=== PATIENT | female | born 1930 | race Caucasian/White ===

== ENCOUNTER 2016-09-11 14:54 | Inpatient (IN) | payer MEDICARE, OTHER ==
[~2016-09-11] VITALS: Ht 152.4 cm; Wt 78.0 kg
[2016-09-11] MEDS ORDERED: FOSAMAX70 MG PO (20:32)
[2016-09-11] MEDS ORDERED: ZYLOPRIM 100 M100 MG PO (20:33)
[2016-09-11] MEDS ORDERED: LASIX 40 MG TAB40 MG PO (20:33)
[2016-09-11] MEDS ORDERED: ATROVENT INH S2.5 ML INH (20:36)
[2016-09-11] MEDS ORDERED: COZAAR 50MG TAB50 MG GT (20:37)
[2016-09-11] MEDS ORDERED: KLOR-CON M1010 MEQ PO (20:37)
[2016-09-11] MEDS ORDERED: METOPROLOL SUCC25 MG PO (20:38)
[2016-09-11] MEDS ORDERED: MINITRAN1 EAC1 TD (20:40)
[2016-09-11] MEDS ORDERED: ZOCOR20 MG PO (20:41)
[2016-09-11] MEDS ORDERED: SPIRIVA RESPIMAT4 GM INH (20:41)
[2016-09-11] MEDS ORDERED: PROAIR HFA8.5 GM INH (20:43)
[2016-09-12 05:34] LABS: HEMOGLOBIN 9.1 gm/dl (12.3-15.3); RED BLOOD COUNT 2.84 M/UL (4.00-5.10); WHITE BLOOD COUNT 4.9 K/UL (4.5-11.0)
[2016-09-13 05:26] LABS: HEMOGLOBIN 9.8 gm/dl (12.3-15.3); RED BLOOD COUNT 3.05 M/UL (4.00-5.10); WHITE BLOOD COUNT 5.6 K/UL (4.5-11.0)
[2016-09-14 05:20] LABS: HEMOGLOBIN 9.2 gm/dl (12.3-15.3); RED BLOOD COUNT 2.85 M/UL (4.00-5.10); WHITE BLOOD COUNT 5.3 K/UL (4.5-11.0)
[2016-09-16 05:39] LABS: HEMOGLOBIN 8.8 gm/dl (12.3-15.3); RED BLOOD COUNT 2.75 M/UL (4.00-5.10)
[2016-09-16] MEDS ORDERED: NORVASC 5 MG TAB5 MG PO (16:31)
[2016-09-16] MEDS ORDERED: ELIQUIS2.5 MG PO (16:32)
[2016-09-16] MEDS ORDERED: ASPIR 8181 MG PO (16:34)
[2016-09-16] MEDS ORDERED: SPIRIVA RESPIMAT4 GM INH (16:36)
[2016-09-16] MEDS ORDERED: DULERA 100 MCG8.8 GM INH (16:44)
[2016-09-16] MEDS ORDERED: TYLENOL 325MG325 MG PO (16:45)
[2016-09-16] MEDS ORDERED: FERROUS SULFAT325 MG PO (16:52)
[2016-09-16] MEDS ORDERED: THERAGRAN M TAB1 EA PO (16:53)
[2016-09-16] MEDS ORDERED: OXYGEN (16:55)
[2016-09-16] MEDS ORDERED: IPRAT-ALBUT 0.5-3 ML INH (17:13)
[2016-09-16] MEDS ORDERED: ECOTRIN81 MG PO (17:15)
[2016-09-16] MEDS ORDERED: TYLENOL W/CODEIN1 E1 PO (17:17)
[2016-09-16] MEDS ORDERED: SPIRIVA HANDIH18 MCG INH (17:17)
== END 2016-09-16 18:30 | disposition home health service (06) | DRG 242 ==
LOC: PROG CARE 14:54
PROVIDERS: ADMIT Internal Medicine Infectious Disease
PROC: 0JH606Z Insertion of Pacemaker, Dual Chamber into Chest Subcutaneous Tissue and Fascia, Open Approach (ICD-10-PCS; principal; 2016-09-15)
PROC: 02HK3JZ Insertion of Pacemaker Lead into Right Ventricle, Percutaneous Approach (ICD-10-PCS; 2016-09-15)
DX: I44.2 Atrioventricular block, complete (principal); I50.33 Acute on chronic diastolic (congestive) heart failure; I26.99 Other pulmonary embolism without acute cor pulmonale; J96.21 Acute and chronic respiratory failure with hypoxia; I13.0 Hypertensive heart and chronic kidney disease with heart failure and stage 1 through stage 4 chronic kidney disease, or unspecified chronic kidney disease; N17.9 Acute kidney failure, unspecified; R00.1 Bradycardia, unspecified; N18.9 Chronic kidney disease, unspecified; J44.9 Chronic obstructive pulmonary disease, unspecified; D50.9 Iron deficiency anemia, unspecified; E53.8 Deficiency of other specified B group vitamins; E87.5 Hyperkalemia; I25.10 Atherosclerotic heart disease of native coronary artery without angina pectoris; Z95.5 Presence of coronary angioplasty implant and graft; Z87.891 Personal history of nicotine dependence; Z88.7 Allergy status to serum and vaccine; Z79.899 Other long term (current) drug therapy; Z79.82 Long term (current) use of aspirin; Z98.890 Other specified postprocedural states; Z90.49 Acquired absence of other specified parts of digestive tract; Z82.49 Family history of ischemic heart disease and other diseases of the circulatory system; R79.1 Abnormal coagulation profile
CPT/HCPCS: ECHO; 33208; 36415; 71010; 78582; 80048; 80053; 80061; 81001; 82436; 82550; 82553; 82570; 82607; 82728; 82746; 83540; 83550; 83735; 84133; 84156; 84300; 84443; 84484; 85025; 85027; 85379; 87086; 93005; 93306; 93970; 94640; 94664; 94760; A9540; A9567; C1785; C1898; J1200; J1644; J1650; J1756; J1940; J2250; J3010; J3370; J3420; J7030; J7040; J7050; J7070; Q9965

== ENCOUNTER 2016-09-23 14:19 | Observation (INO) | payer MEDICARE, OTHER ==
[~2016-09-23] VITALS: Ht 152.4 cm; Wt 79.0 kg
[~2016-09-23 14:19] MED LIST: ASPIR 8181 MG PO; ATROVENT INH S2.5 ML INH; COZAAR 50MG TAB50 MG GT; DULERA 100 MCG8.8 GM INH; ECOTRIN81 MG PO; ELIQUIS2.5 MG PO; FERROUS SULFAT325 MG PO; FOSAMAX70 MG PO; IPRAT-ALBUT 0.5-3 ML INH; KLOR-CON M1010 MEQ PO; LASIX 40 MG TAB40 MG PO; METOPROLOL SUCC25 MG PO; MINITRAN1 EAC1 TD; NORVASC 5 MG TAB5 MG PO; OXYGEN; PROAIR HFA8.5 GM INH; SPIRIVA HANDIH18 MCG INH; SPIRIVA RESPIMAT4 GM INH; THERAGRAN M TAB1 EA PO; TYLENOL 325MG325 MG PO; TYLENOL W/CODEIN1 E1 PO; ZOCOR20 MG PO; ZYLOPRIM 100 M100 MG PO
[2016-09-23 16:50] LABS: HEMOGLOBIN 9.1 gm/dl (12.3-15.3); RED BLOOD COUNT 2.87 M/UL (4.00-5.10); WHITE BLOOD COUNT 6.5 K/UL (4.5-11.0)
[2016-09-23 17:10] LABS: BUN/CREATININE RATIO 24 (0-10)
[2016-09-23 21:47] LABS: HEMOGLOBIN 8.9 gm/dl (12.3-15.3); RED BLOOD COUNT 2.76 M/UL (4.00-5.10); WHITE BLOOD COUNT 6.6 K/UL (4.5-11.0)
[2016-09-23 22:06] LABS: BUN/CREATININE RATIO 23 (0-10)
[2016-09-24 03:37] LABS: BUN/CREATININE RATIO 23 (0-10)
[2016-09-24] MEDS ORDERED: LIPITOR TAB 1010 MG PO (12:46)
== END 2016-09-24 14:38 | disposition home or self-care (01) ==
LOC: ER1 14:19 → ZEROF 18:28 → M/S 20:48
PROVIDERS: Emergency Medicine; ADMIT Internal Medicine
DX: I13.0 Hypertensive heart and chronic kidney disease with heart failure and stage 1 through stage 4 chronic kidney disease, or unspecified chronic kidney disease (principal); I50.33 Acute on chronic diastolic (congestive) heart failure; N18.3 Chronic kidney disease, stage 3 (moderate); J96.11 Chronic respiratory failure with hypoxia; R60.9 Edema, unspecified; I26.99 Other pulmonary embolism without acute cor pulmonale; D53.9 Nutritional anemia, unspecified; E78.5 Hyperlipidemia, unspecified; Z87.891 Personal history of nicotine dependence; Z88.7 Allergy status to serum and vaccine; Z79.01 Long term (current) use of anticoagulants; Z79.82 Long term (current) use of aspirin; Z79.899 Other long term (current) drug therapy; Z90.49 Acquired absence of other specified parts of digestive tract; Z95.0 Presence of cardiac pacemaker
CPT/HCPCS: 36415; 36600; 71010; 80048; 80053; 81001; 82550; 82553; 82803; 83735; 83880; 84484; 85025; 85610; 85730; 93005; 94640; 94664; 96374; 96376; 99285; G0378; J1940